=== PATIENT | female | born 1930 | race Caucasian/White ===

== ENCOUNTER 2017-04-21 06:28 | Day surgery (SDC) | payer MEDICARE, OTHER ==
[~2017-04-21 06:28] MED LIST: ADULT LOW DOSE81 MG; ATIVAN0.5 M1 PO; ATIVAN0.5 MG PO; CALCIUM W/VIT1 EACH PO; CALCIUM600 MG; CITRACAL + D M1 EAC1 PO; EQL FISH OIL 1,1 CA1; EXCEDRIN EXTRA1 EAC4 PO; EXCEDRIN PO; GENTEAL25 ML; LIDODERM30 EA TP; METAMUCIL1042 GM PO; MIRALAX12 EA PO; MIRALAX17 G2 PO; MULTIPLE VITAMI1 TAB PO; MULTIVITAMINS1 EAC6 PO; NATURAL TEARS; OMEPRAZOLE20 MG PO; OMEPRAZOLE40 M2 PO; SYNTHROID50 MCG PO; SYNTHROID75 MC1 PO; THERA TEARS15 ML OP; THERATEARS EACH EYE; TRAMADOL; TYLENOL EXTRA500 M1 PO; TYLENOL EXTRA500 MG PO; VITAMIN D3 PO; VITAMIN D31000 UNI3 PO; VITAMIN E200 UNIT; VYTORIN 10/20 T1 TAB PO; ZOFRAN4 M1 PO; [UNRECOGNIZED DRUG - OTHER] PO; [UNRECOGNIZED DRUG - REMARK] PO
[2017-04-21 07:21] LABS: BASO % 1.4 % (0-2); BASO ABSOLUTE COUNT 0.1 tho/cmm (0.0-0.2); EOS % 3.1 % (0-7); EOSINOPHIL ABSOLUTE COUNT 0.1 tho/cmm (0.0-0.7); HCT-HEMATOCRIT 37.7 % (34.0-49.0); HGB-HEMOGLOBIN 12.4 gm/dl (12.0-15.5); IMMATURE GRANULOCYTES ABSOLUTE 0.01 tho/cmm (0-0.03); IMMATURE GRANULOCYTES PERCENT 0.3 % (0-0.3); LYMPH % 30.4 % (20-45); LYMPH ABSOLUTE COUNT 1.1 tho/cmm (0.8-4.5); MCH (MEAN CORPUSCULAR HGB) 30.5 pg (28.0-32.0); MCHC MEAN CORPUSCULAR HGB CONC 32.9 % (32.0-36.0); MCV (MEAN CELL VOLUME) 92.9 fl (82.0-96.0); MEAN PLATELET VOLUME 8.6 cmc (9.4-12.4); MONO % 6.7 % (0-12); MONOCYTE ABSOLUTE COUNT 0.2 tho/cmm (0.0-1.2); NEUTROPHIL ABSOLUTE COUNT 2.1 tho/cmm (1.6-8.0); NEUTROPHIL-AUTOMATED 2.1 tho/cmm (1.6-8.0); NEUTROPHILS % 58.1 % (40-80); PLATELET COUNT 185 tho/cmm (150-450); RED BLOOD COUNT 4.06 mil/cmm (4.00-5.20); RED CELL DISTRIBUTION WIDTH 13.3 % (12.4-16.4); WHITE BLOOD COUNT 3.6 tho/cmm (4.0-10.0)
[2017-04-21 07:36] LABS: ANION GAP 16 mmol/L (0-20); BLOOD UREA NITROGEN 13 mg/dl (6-24); CALCIUM 8.9 mg/dl (8.5-10.5); CARBON DIOXIDE-VENOUS 22 mmol/L (22-32); CHLORIDE 110 mmol/l (96-110); CREATININE 0.81 mg/dl (0.50-1.10); GLUCOSE 97 mg/dL (70-110); POTASSIUM 3.8 mmol/L (3.7-5.1); SODIUM 144 mmol/L (135-145); eGFR VALUE FOR BLACK 76 mL/Min
== END 2017-04-21 10:00 ==
LOC: SHSC 06:28 → ENDOS 08:08
PROVIDERS: Anesthesiology
PROC: 0DBL8ZX Excision of Transverse Colon, Via Natural or Artificial Opening Endoscopic, Diagnostic (ICD-10-PCS; principal; 2017-04-21)
PROC: 0DB68ZX Excision of Stomach, Via Natural or Artificial Opening Endoscopic, Diagnostic (ICD-10-PCS; 2017-04-21)
DX: D12.3 Benign neoplasm of transverse colon (principal); K57.30 Diverticulosis of large intestine without perforation or abscess without bleeding; K64.8 Other hemorrhoids; K25.9 Gastric ulcer, unspecified as acute or chronic, without hemorrhage or perforation; M15.9 Polyosteoarthritis, unspecified; F41.9 Anxiety disorder, unspecified; F32.9 Major depressive disorder, single episode, unspecified; Z88.8 Allergy status to other drugs, medicaments and biological substances; Z98.41 Cataract extraction status, right eye; Z79.899 Other long term (current) drug therapy; Z98.890 Other specified postprocedural states